=== PATIENT | male | born 1995 | race Caucasian/White ===

== ENCOUNTER 2020-02-25 13:08 | Emergency (ER) | payer OTHER | END 2020-02-25 14:37 | disposition other institution (70) | LOC: ED 13:08 | DX: Z02.89 Encounter for other administrative examinations (principal) ==

== ENCOUNTER 2020-02-25 13:08 | Emergency (ER) | payer MEDICAID ==
[~2020-02-25] VITALS: Ht 172.7 cm; Wt 72.6 kg
[2020-02-25 13:21] VITALS: Ht 172.7 cm; Wt 72.6 kg
[2020-02-25 14:37] VITALS: BP 105/49
== END 2020-02-25 14:37 | disposition other institution (70) ==
LOC: ED 13:08
DX: S30.811A Abrasion of abdominal wall, initial encounter (principal); S30.810A Abrasion of lower back and pelvis, initial encounter; W54.0XXA Bitten by dog, initial encounter; Y93.89 Activity, other specified; Y92.89 Other specified places as the place of occurrence of the external cause; Y99.8 Other external cause status